=== PATIENT | male | born 1970 | race Caucasian/White ===

== ENCOUNTER 2016-07-27 18:50 | Emergency (ER) | payer BC ==
[~2016-07-27] VITALS: Ht 175.3 cm; Wt 170.0 kg
[~2016-07-27 18:50] MED LIST: PIOG45TA PO; glipizide; lisinopril
--- OUTSIDE RECORDS SUMMARY | 2016-07-27 18:54 | XMS REPORT | Continuity of Care Document ---
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 03/27/2015 Ronak Hough G56.02 Carpal Tunnel Syndrome, Left Upper Limb 04/18/2015 ALISON CAMPOS, PAGE Mayes Ot 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, UNSPECIFIED, NOT 04/18/2015 PAGE ROSAS MD Ot R51 HEADACHE 05/13/2015 [facility] PICHARDO, IRENE Fitzgerald Ot 723.4 05/30/2015 MC PICHARDO, IRENE Fitzgerald Ot 723.4 06/05/2015 IRENE BENTLEY DC Ot 723.4 06/05/2015 NORM DUFFY MD Ot E11.9 TYPE 2 DIABETES MELLITUS WITHOUT COMPLIC 06/05/2015 NORM DUFFY MD R Ot I10 ESSENTIAL (PRIMARY) HYPERTENSION 06/05/2015 NORM DUFFY MD R Ot R07.89 OTHER CHEST PAIN 06/19/2015 NORM DUFFY MD R Ot R07.89 06/19/2015 NORM DUFFY MD R Ot R51 06/19/2015 NORM DUFFY MD Ot R07.89 06/19/2015 NORM DUFFY MD R Ot R51 08/09/2015 NORM DUFFY MD R Ot R07.89 OTHER CHEST PAIN 08/09/2015 NORM DUFFY MD R Ot R51 HEADACHE 06/10/2016 IRENE BENTLEY DC Ot 723.4 BRACHIAL NEURITIS NOS 06/10/2016 NORM DUFFY MD, Ot R07.89 OTHER CHEST PAIN 06/10/2016 NORM DUFFY MD, Ot R51 HEADACHE 06/13/2016 IRENE BENTLEY DC Ot 723.4 BRACHIAL NEURITIS NOS 06/13/2016 NORM DUFFY MD Ot R07.89 OTHER CHEST PAIN 06/13/2016 NORM DUFFY MD, Ot R51 HEADACHE Procedures Results Encounters ACCT No. Visit Date/Time Discharge Status Pt. Type Provider Facility Loc./Unit Complaint [id number] 03/26/2015 08:52:00 03/26/2015 23: 59:00 DIS Outpatient [facility] OUTPT Left Carpal Tunnel Release [id number] 04/10/2014 11:14:00 04/10/2014 23: 59:00 DIS Outpatient [facility] OUTPT Right Carpal Tunnel Release
--- OUTSIDE RECORDS SUMMARY | 2016-07-27 18:55 | XMS REPORT | Continuity of Care Document ---
Author Author [facility] Organization [facility] Address Unknown Phone Unavailable Allergies Active Description Code Type Severity Reaction Onset Reported/Identified Relationship to Patient Clinical Status Yes metFORMIN 4534 Ingredient mild to moderate Hives Yes Penicillins 476 Allergen Group moderate Hives / Skin Rash Yes Penicillins [id number] Drug Allergy Unknown Hives 04/18/2015 Medications Problems [...] ROSAS MD Ot R51 HEADACHE 05/13/2015 MC IPCHARDO, IRENE Fitzgerald Ot 723.4 05/30/2015 MC PICHARDO, [...] Status Pt. Type Provider Facility Loc./Unit Complaint [id number] 03/26/2015 08:52:00 03/26/2015 23: 59:00 DIS Outpatient [facility] OUTPT Left Carpal Tunnel Release [id number] 04/10/2014 11:14:00 04/10/2014 23: 59:00 DIS Outpatient [facility] OUTPT Right Carpal Tunnel Release
[2016-07-27 19:54] LABS: BASOPHILS % (AUTO) 0 % (0-2); EOSINOPHILS # (AUTO) 0.1 10^3uL; EOSINOPHILS % (AUTO) 1 % (0-4); LYMPHOCYTES # (AUTO) 1.8 X10^3; MEAN CORPUSCULAR HEMOGLOBIN 27.2 PG (26.0-34.0); MEAN CORPUSCULAR HGB CONC 33.3 g/dL (31.0-37.0); MEAN CORPUSCULAR VOLUME 82 FL (80-100); MEAN PLATELET VOLUME 10.2 FL (6.0-9.5); MONOCYTES # (AUTO) 0.7 X10^3; MONOCYTES % (AUTO) 9 % (3-11); NEUTROPHILS # (AUTO) 5.1 X10^3; NEUTROPHILS % (AUTO) 66 % (51-67); PLATELET COUNT 213 10^3uL (150-450); WHITE BLOOD COUNT 7.79 10^3uL (4.0-11.0)
[2016-07-27 20:02] LABS: ALBUMIN 3.8 g/dL (3.4-5.0); ANION GAP 14.5 MEQ/L (3-15); CALCULATED IONIZED CALCIUM 3.7 mg/dL (3.8-4.6); TOTAL PROTEIN 7.2 g/dL (6.4-8.5)
[2016-07-27 20:50] LABS: BILIRUBIN,URINE Negative (Negative); CLARITY,URINE Clear; COLOR,URINE Yellow; GLUCOSE, URINE (UA) Negative (Negative); LEUKOCYTE ESTERASE ,URINE Negative (Negative); UROBILINOGEN,URINE 0.2 mg/dL (0.2-1.0)
[2016-07-27 21:36] VITALS: BP 137/92
[2016-07-27 21:47] LABS: RBC,URINE 0-2 /HPF; URINE CENTRIFUGED VOLUME 12 mL
== END 2016-07-27 21:37 | disposition home or self-care (01) ==
LOC: ED 18:52
DX: M79.89 Other specified soft tissue disorders (principal); R29.898 Other symptoms and signs involving the musculoskeletal system
CPT/HCPCS: 36415; 80053; 81003; 81015; 85025; 85379; 99282; 99283